=== PATIENT | female | born 1995 | race Caucasian/White ===

== ENCOUNTER 2021-03-02 13:47 | Emergency (ER) | payer BC ==
[2021-03-02 13:53] VITALS: BP 104/70; PULSE 105
[2021-03-02] MEDS ORDERED: SUMAtriptan 6 MG/0.5 ML SDV SUBCUT ONE (14:11)
--- NOTE | 2021-03-02 14:17 | EDM.PDOC ---
ED HPI GENERAL MEDICAL PROBLEM - General Chief Complaint: Headache Stated Complaint: MIGRAINE, SORE THROAT, EAR PAIN Time Seen by Provider: 03/02/21 14:00 Source of Information: Reports: Patient History Limitations: Reports: No Limitations - History of Present Illness INITIAL COMMENTS - FREE TEXT/NARRATIVE: She presents to the emergency department complaining of a migraine. She reports bilateral frontal headache described as severe and constant. Feels throbbing pain in her head. Headache has been present for 4 days. She has a history of migraines as a child, though none for several years. Positive photo phonophobia. No aura. No visual changes. No nausea or vomiting. No injury that she is aware of. She is complaining of a sore throat for 1 to 2 days. She had fever 2 and 3 days ago, but none in the past 24 hours. No known exposure. No cough or shortness of breath. No chest pain or tightness. Headache Pain Score (Numeric/FACES): 8 - Related Data Allergies Allergy/AdvReac Type Severity Reaction Status Date / Time No Known Drug Allergies Allergy Cannot Verified 03/02/21 13:53 Remember Home Meds: Home Meds . [No Known Home Meds] 03/02/21 [History] Social & Family History - Living Situation & Occupation Living situation: Reports: Single, with Family Occupation: Employed ED ROS GENERAL - Review of Systems Review Of Systems: See Below Constitutional: Reports: Fever, Chills, Fatigue, Decreased Appetite HEENT: Reports: Throat Pain. Denies: Ear Discharge, Ear Pain, Rhinitis, Sinus Problem, Throat Swelling Respiratory: Denies: Shortness of Breath, Wheezing, Cough Cardiovascular: Denies: Chest Pain, Palpitations GI/Abdominal: Denies: Abdominal Pain, Diarrhea, Nausea, Vomiting Neurological: Reports: Headache Psychiatric: Denies: Agitation, Anxiety, Depression ED EXAM, GENERAL - Physical Exam Exam: See Below Exam Limited By: No Limitations General Appearance: Alert, WD/WN, Mild Distress Eye Exam: Bilateral Eye: EOMI, PERRL Ears: Normal External Exam, Normal Canal, Normal TMs Nose: Normal Inspection, Normal Mucosa, No Blood. No: Nasal Drainage Throat/Mouth: Normal Inspection, Normal Lips, Normal Oropharynx, No Airway Compromise Head: Atraumatic, Normocephalic Neck: Supple, Non-Tender. No: Lymphadenopathy (L), Lymphadenopathy (R) Respiratory/Chest: No Respiratory Distress, Lungs Clear, Normal Breath Sounds Cardiovascular: Regular Rate, Rhythm, No Murmur GI/Abdominal: Normal Bowel Sounds, Soft, Non-Tender Neurological: Alert, Oriented, CN II-XII Intact, Normal Cognition Psychiatric: Normal Affect, Normal Mood Skin Exam: Warm, Dry Course - Vital Signs Text/Narrative:: She was initially given Imitrex 6 mg subcu for apparent migraine. Pain initially got worse but then decreased on the right side was all present on the left side. She is then given a liter of IV fluid with 30 mg of Toradol and 50 mg of Benadryl. Covid test did come back positive. Headache did improve further with the Toradol and Benadryl and affect at times was pain-free but still had pain with movement of her eyes. I explained that the headache was secondary to Covid and likely not a migraine. She will be discharged home on routine Covid quarantine instructions. Last Recorded V/S: Last Vital Signs Temp 37.0 C 03/02/21 13:52 Pulse 105 H 03/02/21 13:52 Resp 14 03/02/21 13:52 BP 104/70 03/02/21 13:52 Pulse Ox 98 03/02/21 13:52 - Orders/Labs/Meds Orders: Active Orders 24 hr Category Date Time Status Sodium Chloride 0.9% [Normal Saline] 1,000 ml Med 03/02/21 14:50 Active IV .BOLUS Medication Orders Sodium Chloride (Normal Saline) 1,000 mls @ 999 mls/hr IV .BOLUS ONE Stop: 03/02/21 15:50 Last Admin: 03/02/21 15:09 Dose: 999 mls/hr Documented by: [email or web address] Labs: Laboratory Tests 03/02/21 Range/Units 14:10 SARS-CoV-2 RNA (IRMA) Positive H (NEGATIVE) Meds: Medications Generic Name Dose Route Start Last Admin Trade Name Freq PRN Reason Stop Dose Admin Sodium Chloride 1,000 mls @ 999 mls/hr 03/02/21 14:50 03/02/21 15:09 Normal Saline IV 03/02/21 15:50 999 mls/hr .BOLUS ONE Administration Discontinued Medications Generic Name Dose Route Start Last Admin Trade Name Freq PRN Reason Stop Dose Admin Diphenhydramine HCl 50 mg 03/02/21 14:50 03/02/21 15:10 Diphenhydramine 50 Mg/Ml Sdv IVPUSH 03/02/21 14:51 Not Given ONETIME ONE Ketorolac Tromethamine 30 mg 03/02/21 14:50 03/02/21 15:09 Ketorolac 30 Mg/Ml Sdv IVPUSH 03/02/21 14:51 30 mg ONETIME ONE Administration Sumatriptan Succinate 6 mg 03/02/21 14:11 03/02/21 14:22 Sumatriptan 6 Mg/0.5 Ml Sdv SUBCUT 03/02/21 14:12 6 mg ONETIME ONE Administration Departure - Departure Time of Disposition: 16:00 Disposition: Home, Self-Care 01 Condition: Good Clinical Impression: COVID-19, Headache - Discharge Information *PRESCRIPTION DRUG MONITORING PROGRAM REVIEWED*: Not Applicable *COPY OF PRESCRIPTION DRUG MONITORING REPORT IN PATIENT GUERA: Not Applicable Instructions: COVID-19 Frequently Asked Questions, General Headache Without Cause Referrals: PCP,None [Primary Care Provider] - Forms: ED Department Discharge Sepsis Event Note (ED) - Evaluation Sepsis Screening Result: Possible Sepsis Risk - Focused Exam Vital Signs: Vital Signs Temp Pulse Resp BP Pulse Ox 03/02/21 13:52 37.0 C 105 H 14 104/70 98 - Problem List & Annotations (1) COVID-19 SNOMED Code(s): 459930195 Code(s): U07.1 - COVID-19 Status: Acute Current Visit: Yes (2) Headache SNOMED Code(s): 80972287 Code(s): R51.9 - HEADACHE, UNSPECIFIED Status: Acute Current Visit: Yes - My Orders Last 24 Hours: My Active Orders 03/02/21 14:50 Sodium Chloride 0.9% [Normal Saline] 1,000 ml IV .BOLUS - Assessment/Plan Last 24 Hours: My Active Orders 03/02/21 14:50 Sodium Chloride 0.9% [Normal Saline] 1,000 ml IV .BOLUS Plan: Tylenol and/or Advil as needed for pain. Quarantine at home for 2 weeks. Follow-up with worsening problems.
[2021-03-02] MEDS ORDERED: Ketorolac 30 MG/ML SDV IVPUSH ONE (14:50)
[2021-03-02] MEDS ORDERED: Sodium Chloride 0.9% 1,000 ML IV ONE (14:50)
[2021-03-02] MEDS ORDERED: diphenhydrAMINE 50 MG/ML SDV IVPUSH ONE (14:50)
== END 2021-03-02 15:55 | disposition home or self-care (01) ==
LOC: LL.ED 13:47
DX: U07.1 COVID-19 (principal)
CPT/HCPCS: 96372; 96374; 99283; 99284-25; J1885; J3030; J7030; U0002

== ENCOUNTER 2023-03-04 02:07 | Emergency (ER) | payer MEDICAID ==
[2023-03-04 03:39] VITALS: BP 98/58; PULSE 60
== END 2023-03-04 03:21 | disposition home or self-care (01) ==
LOC: LL.ED 02:07
DX: T14.90XA Injury, unspecified, initial encounter (principal); W19.XXXA Unspecified fall, initial encounter
CPT/HCPCS: 73620-LT; 99283